=== PATIENT | female | born 1975 | race Two or more races ===

== ENCOUNTER 2019-04-02 15:20 | Emergency (ER) ==
[2019-04-02 15:31] VITALS: BP 154/110; TEMP 98.6; BMI 29.6
--- NOTE | 2019-04-02 15:57 | ED.PDOC ---
General ED Provider: Dr. FADIA RASMUSSEN Chief Complaint: Non-specific Complaint Stated Complaint: left arm pain after thoracic outlet suergery 6 weeks ago.pain meds were supposed to arrive today but they havent Time Seen by Physician: 15:30 Mode of Arrival: Walk-In Information Source: Patient Exam Limitations: No limitations Primary Care Provider: AURORA REZA Nursing and Triage Documentation Reviewed and Agree: Yes Does patient meet sepsis criteria?: No System Inflammatory Response Syndrome: Not Applicable Sepsis Protocol: For patient's 13 years and over: Temp is 96.8 and below OR 101 and greater Pulse >90 BPM Resp >20/minute Acutely Altered Mental Status Are patient's symptoms suggestive of a new infection, such as: -Pneumonia -Skin, Soft Tissue -Endocarditis -UTI -Bone, Joint Infection -Implantable Device -Acute Abdominal Infection -Wound Infection -Meningitis -Blood Stream Catheter Infection -Unknown Musculoskeletal Complaint Exam - Upper Extremity Complaint/Exam Location of Pain: Reports: Left, Arm Mechanism of Injury: Reports: Other (T.O.S SURGERY 6 WEEKS AGO) Onset/Duration: CHRONIC Symptoms Are: Still present Timing: Constant Episodes Lasting: Days Initial Severity: Moderate Current Severity: Moderate Location: Reports: Discrete Character: Reports: Aching Aggravating: Reports: None Alleviating: Reports: None Non-Orthopedic Risk Factors: Reports: None DVT Risk Factors: Reports: None Septic Arthritis Risk Factors: Reports: None Related Surgical History: Reports: Other Orthopedic Surgery [place] Bundle Intact Distal to Injury: No Differential Diagnoses: Closed Fracure Review of Systems - Review Of Systems Constitutional: Reports: No symptoms Eyes: Reports: No symptoms Ears, Nose, Mouth, Throat: Reports: No symptoms Respiratory: Reports: No symptoms Cardiac: Reports: No symptoms GI: Reports: No symptoms : Reports: No symptoms Musculoskeletal: Reports: Other (ARM PAIN) Skin: Reports: No symptoms Neurological: Reports: No symptoms Endocrine: Reports: No symptoms Hematologic/Lymphatic: Reports: No symptoms All Other Systems: Reviewed and Negative Past Medical History - Past Medical History Previously Healthy: Yes Endocrine: Reports: None Cardiovascular: Reports: None Respiratory: Reports: None Hematological: Reports: None Gastrointestinal: Reports: None Genitourinary: Reports: None Neuro/Psych: Reports: None Musculoskeletal: Reports: None Cancer: Reports: None Last Menstrual Period: last week - Surgical History General Surgical History: Reports: None - Family History Family History: Reports: None - Social History Smoking Status: Current every day smoker, Light tobacco smoker Hx Substance Use: No Alcohol Screening: None Physical Exam - Physical Exam Appearance: Well-appearing, No pain distress, Well-nourished Eyes: KAJAL, EOMI, Conjunctiva clear ENT: Ears normal, Nose normal, Oropharynx normal Respiratory: Airway patent, Breath sounds clear, Breath sounds equal, Respirations nonlabored Cardiovascular: RRR, Pulses normal, No rub, No murmur GI/: Soft, Nontender, No masses, Bowel sounds normal, No Organomegaly Musculoskeletal: Normal strength (PULSES WNL LEFT ARM ), ROM intact, No edema, No calf tenderness Skin: Warm, Dry, Normal color Neurological: Sensation intact, Motor intact, Reflexes intact, Cranial nerves intact, Alert, Oriented Psychiatric: Affect appropriate, Mood appropriate Critical Care Note - Critical Care Note Total Time (mins): 0 Course - Course Vital Signs: Temp Pulse Resp BP Pulse Ox 04/02/19 15:20 98.6 F 120 H 20 154/110 H 96 Departure - Departure Time of Disposition: 15:58 Disposition: HOME SELF-CARE Discharge Problem: Arm pain, left Instructions: Arm Pain (ED) Condition: Good Pt referred to PMD for follow-up: Yes IPMP verified?: No Additional Instructions: Please call your Family Physician as soon as possible to schedule a follow-up appointment. Allergies/Adverse Reactions: Allergies No Known Allergies Allergy (Unverified 04/02/19 15:26) Home Medications: Ambulatory Orders Cyclobenzaprine HCl [Flexeril] 5 mg PO TID 04/02/19 Diazepam [Valium] 10 mg PO BID 04/02/19 Gabapentin [Neurontin] 300 mg PO TID 04/02/19 Methocarbamol [Robaxin] 500 mg PO TID 04/02/19
== END 2019-04-02 16:03 | disposition home or self-care (01) ==
LOC: ED 15:20
DX: M79.602 Pain in left arm (principal); Z98.890 Other specified postprocedural states; F17.210 Nicotine dependence, cigarettes, uncomplicated
CPT/HCPCS: 99282

== ENCOUNTER 2019-05-12 16:34 | Emergency (ER) ==
[2019-05-12 16:39] VITALS: BP 128/74; TEMP 99.1; BMI 28.5
--- NOTE | 2019-05-12 18:18 | ED.PDOC ---
General Stated Complaint: fall in shower 72 hrs ago due to seziure Time Seen by Physician: 16:39 (fall was 3 days ago) Mode of Arrival: Walk-In Information Source: Patient Exam Limitations: No limitations Nursing and Triage Documentation Reviewed and Agree: Yes Does patient meet sepsis criteria?: No System Inflammatory Response Syndrome: Not Applicable <FADIA RASMUSSEN - Last Filed: 05/12/19 18:16> <KRISTI MENCHACA - Last Filed: 05/12/19 19:53> ED Provider: Dr. KRISTI MENCHACA MD Chief Complaint: Fall Primary Care Provider: AURORA REZA Sepsis Protocol: For patient's 13 years and over: Temp is 96.8 and below OR 101 and greater Pulse >90 BPM Resp >20/minute Acutely Altered Mental Status Are patient's symptoms suggestive of a new infection, such as: -Pneumonia -Skin, Soft Tissue -Endocarditis -UTI -Bone, Joint Infection -Implantable Device -Acute Abdominal Infection -Wound Infection -Meningitis -Blood Stream Catheter Infection -Unknown Trauma/Injury Complaint Exam - Trauma Complaint/Exam Location of Pain or Injury: Reports: Head, Neck Mechanism of Injury: Reports: Fall Onset/Duration: 3 days ago Symptoms Are: Still present Timing of Treatment: Delayed Initial Severity: Mild Current Severity: Mild Character: Reports: Aching Aggravating: Reports: Movement Alleviating: Reports: Rest Associated Signs and Symptoms: Denies: LOC, Confusion, Memory loss, Lethargy, Vomiting, Bleeding, Bruising, Swelling, Extremity disuse, Painful respiration, Hoarseness, Dysphagia, Hemoptysis, Significant blood loss : No Penetrating Injury Risk Factors: Reports: None Nexus Low Risk Criteria: No evidence of intoxicat., No Altered LOC, No focal neuro deficit, No distracting injuries Glascow Coma Scale (see protocol): 15 <FADIA RASMUSSEN - Last Filed: 05/12/19 18:16> Review of Systems - Review Of Systems Constitutional: Reports: No symptoms Eyes: Reports: No symptoms Ears, Nose, Mouth, Throat: Reports: No symptoms Respiratory: Reports: No symptoms Cardiac: Reports: No symptoms GI: Reports: No symptoms : Reports: No symptoms Musculoskeletal: Reports: Back pain, Other (coccyx pain ) Skin: Reports: No symptoms Neurological: Reports: No symptoms Endocrine: Reports: No symptoms Hematologic/Lymphatic: Reports: No symptoms All Other Systems: Reviewed and Negative <FADIA RASMUSSEN Filed: 05/12/19 18:16> Past Medical History - Past Medical History Previously Healthy: Yes Endocrine: Reports: None Cardiovascular: Reports: None Respiratory: Reports: None Hematological: Reports: None Gastrointestinal: Reports: None Genitourinary: Reports: None Neuro/Psych: Reports: None Musculoskeletal: Reports: None Cancer: Reports: None Last Menstrual Period: 3 weeks - Surgical History General Surgical History: Reports: None - Family History Family History: Reports: None - Social History Smoking Status: Current every day smoker, Light tobacco smoker Hx Substance Use: No Alcohol Screening: None <FADIA RASMUSSEN Filed: 05/12/19 18:16> Physical Exam - Physical Exam Appearance: Well-appearing, No pain distress, Well-nourished Eyes: KAJAL, EOMI, Conjunctiva clear ENT: Ears normal, Nose normal, Oropharynx normal Respiratory: Airway patent, Breath sounds clear, Breath sounds equal, Respirations nonlabored Cardiovascular: RRR, Pulses normal, No rub, No murmur GI/: Soft, Nontender, No masses, Bowel sounds normal, No Organomegaly Musculoskeletal: Normal strength, ROM intact, No edema, No calf tenderness Skin: Warm, Dry, Normal color Neurological: Sensation intact, Motor intact, Reflexes intact, Cranial nerves intact, Alert, Oriented Psychiatric: Affect appropriate, Mood appropriate <FADIA RASMUSSEN Filed: 05/12/19 18:16> Critical Care Note - Critical Care Note Total Time (mins): 0 <FADIA RASMUSSEN Filed: 05/12/19 18:16> - Course Orders, Labs, Meds: Lab Review 05/12/19 18:25 Urine Test Negative Orders Category Date Time Status URINE Stat LAB 05/12/19 18:[address] CERVICAL SPINE W/O CONTRAST Stat RADS 05/12/19 18:[address] PELVIS W/O CONTRAST Stat RADS 05/12/19 18:15 Taken Vital Signs: Temp Pulse Resp BP Pulse Ox 05/12/19 16:35 99.1 F 126 H 20 128/74 96 Departure - Departure Pt referred to PMD for follow-up: Yes IPMP verified?: No Disposition Discussed With: Patient <AFDIA RASMUSSEN Filed: 05/12/19 18:16> - Departure Time of Disposition: 19:53 Pt referred to PMD for follow-up: Yes IPMP verified?: No Disposition Discussed With: Patient <KRISTI MENCHACA - Last Filed: 05/12/19 19:53> - Departure Disposition: HOME SELF-CARE Discharge Problem: Coccyx sprain Qualifiers: Encounter type: initial encounter Qualified Code(s): S33.8XXA - Sprain of other parts of lumbar spine and pelvis, initial encounter Sprain, neck Qualifiers: Encounter type: initial encounter Qualified Code(s): S13.9XXA - Sprain of joints and ligaments of unspecified parts of neck, initial encounter Instructions: Neck Pain (ED), Acute Neck Pain (ED) Condition: Good Additional Instructions: Please call your Family Physician as soon as possible to schedule a follow-up appointment. Allergies/Adverse Reactions: Allergies No Known Allergies Allergy (Verified 05/12/19 16:39) Home Medications: Ambulatory Orders Cyclobenzaprine HCl [Flexeril] 5 mg PO TID 04/02/19 Diazepam [Valium] 10 mg PO BID 04/02/19 Gabapentin [Neurontin] 300 mg PO TID 04/02/19 Methocarbamol [Robaxin] 500 mg PO TID 04/02/19
[2019-05-12 18:32] LABS: URINE PREGNANCY TEST NEGATIVE (NEGATIVE)
[2019-05-12] MEDS: TORADOL IM STA ×2 (19:32→19:34)
--- NOTE | 2019-05-12 19:35 | CT ---
EXAM: CT scan cervical spine HISTORY: Trauma COMPARISON: CT scan cervical spine 04/08/2019 FINDINGS: Contiguous axial images obtained through the cervical spine utilizing 2-mm collimation. S agittal and coronal reconstructions were imaged and reviewed... There is mild loss of the normal cer vical lordosis suggesting paraspinal muscle. There is 2.4 mm anterolisthesis C4/C5 secondary to face t arthropathy. There is no acute fracture or dislocation.. Mild degenerative disc disease is noted at C5-C6. IMPRESSION: No acute findings.
--- NOTE | 2019-05-12 19:37 | CT ---
EXAM: CT scan pelvis without contrast HISTORY: Fall COMPARISON: None. FINDINGS: Contiguous axial images obtained through the pelvis without contrast utilizing 3-mm collim ation. Sagittal and coronal reconstructions were imaged and reviewed.. Postoperative change L5-S1. There is no acute fracture or dislocation.. The hip joints and SI joints are intact. Follicles are s een in the right ovary. There is a fat-containing umbilical hernia. IMPRESSION: No acute findings
== END 2019-05-12 20:02 | disposition home or self-care (01) ==
LOC: ED 16:34
DX: S33.8XXA Sprain of other parts of lumbar spine and pelvis, initial encounter (principal); S13.9XXA Sprain of joints and ligaments of unspecified parts of neck, initial encounter; W19.XXXA Unspecified fall, initial encounter; R56.9 Unspecified convulsions; F17.210 Nicotine dependence, cigarettes, uncomplicated
CPT/HCPCS: 81025; 96372; 99283